=== PATIENT | female | born 1930 | race Asian ===

== ENCOUNTER 2018-10-18 16:59 | Inpatient (IN) | payer MEDICARE, OTHER ==
[~2018-10-18] VITALS: Ht 154.9 cm; Wt 70.0 kg
[~2018-10-18 16:59] MED LIST: AMLO-512 PO; ASPI-26 PO; ATOR40TA28 PO; CARV6 PO; CELE100 PO; CHL25 PO; COMP5 PO; CYAN250014 PO; DSS100 PO; FERR-89 PO; FLUT16H NASAL; FOLI1 PO; GABA-529 PO; HYDR-2924 PO; INSNOV SQ; MONT10TA21 PO; OXYC-158 PO; SITA100 PO; THIA100T67 PO
[2018-10-18 17:24] LABS: GLUCOSE,POINT OF CARE 209 MG/DL (70-110)
[2018-10-18 17:56] LABS: BASOPHILS % (AUTO) 0.3 % (0.0-2.0); EOSINOPHILS % (AUTO) 0.1 % (1.0-6.0); HEMATOCRIT 33.7 % (36-46); HEMOGLOBIN 11.2 g/dL (12.0-16.0); LYMPHOCYTES # (AUTO) 0.9 K/uL (1.0-4.8); LYMPHOCYTES % (AUTO) 7.6 % (22.0-44.0); MEAN CORPUSCULAR HEMOGLOBIN 31.3 pg (26.0-34.0); MEAN CORPUSCULAR HGB CONC 33.3 G/dL (31.0-37.0); MEAN CORPUSCULAR VOLUME 94 fL (80-100); MONOCYTES # (AUTO) 1.9 K/uL (0.1-1.0); MONOCYTES % (AUTO) 15.5 % (2.0-9.0); NEUTROPHILS # (AUTO) 9.5 K/uL (1.8-7.7); NEUTROPHILS % (AUTO) 76.5 % (40.0-70.0); PLATELET COUNT (AUTO) 157 K/uL (150-450); RED BLOOD CELL COUNT(AUTO) 3.59 MIL/uL (4.00-5.20); RED CELL DISTRIBUTION WIDTH 12.3 % (11.5-14.5)
[2018-10-18 18:04] LABS: CREATININE 1.54 mg/dL (0.60-1.30)
[2018-10-18 18:10] LABS: ALBUMIN 2.5 g/dL (3.4-5.0); BILIRUBIN,TOTAL 0.6 mg/dL (0.1-1.0); TOTAL PROTEIN, SERUM 7.4 g/dL (6.4-8.2)
[2018-10-18] MEDS ORDERED: IPRATROPIUM BROMIDE 0.5 MG/2.5 ML NEB SOLUTION NEB ONE (19:00)
[2018-10-18] MEDS ORDERED: ALBUTEROL SULFATE 2.5 MG/0.5 ML NEB SOLUTION NEB ONE (19:00)
[2018-10-18] MEDS ORDERED: SODIUM CHLORIDE 0.9% 1,000 ML IV ONE ×2 (19:45→21:45)
[2018-10-18] MEDS ORDERED: 0.9% SODIUM CHLORIDE 10 ML SYRINGE IVP PRN ×2 (19:45→21:45)
[2018-10-18] MEDS ORDERED: LEVOFLOXACIN 500 MG/D5% WATER 100 ML IV ONE (19:45)
[2018-10-18] MEDS ORDERED: POTASSIUM CHLORIDE 20 MEQ ER TABLET PO ONE (20:30)
[2018-10-18] MEDS ORDERED: ONDANSETRON HCL 4 MG/2 ML VIAL IVP PRN ×2 (20:30→21:45)
[2018-10-18] MEDS ORDERED: ACETAMINOPHEN 325 MG TABLET PO PRN (20:30)
[2018-10-18 21:41] LABS: INFLUENZA TYPE A NEGATIVE FOR TYPE A (NEGATIVE); INFLUENZA TYPE B NEGATIVE FOR TYPE B (NEGATIVE)
[2018-10-18] MEDS ORDERED: ALBUTEROL SULFATE 2.5 MG/0.5 ML NEB SOLUTION NEB PRN (21:45)
[2018-10-18] MEDS ORDERED: GLUCAGON,HUMAN RECOMBINANT 1 MG VIAL IM PRN (21:45)
[2018-10-18] MEDS ORDERED: IPRATROPIUM BROMIDE 0.5 MG/2.5 ML NEB SOLUTION NEB PRN (21:45)
[2018-10-18] MEDS ORDERED: ZOLPIDEM TARTRATE 5 MG TABLET PO PRN (21:45)
[2018-10-18] MEDS ORDERED: INSULIN LISPRO 100 UNITS/ML SQ PRN (21:45)
[2018-10-18] MEDS ORDERED: DEXTROSE 50%-WATER 25 GM/50 ML SYG IVP PRN (22:00)
[2018-10-18 23:25] VITALS: BP 147/74
[2018-10-18] MEDS: HEPARIN SODIUM,PORCINE 5,000 UNITS/ML VIAL SQ SCH (23:49)
[2018-10-18] MEDS ORDERED: SODIUM CHLORIDE 0.9% 250 ML IV ONE (23:50)
[2018-10-19] MEDS: CefTRIAXone 1 GM/DEXTROSE 50 ML IV SCH ×2 (00:51→22:11)
[2018-10-19] MEDS: AZITHROMYCIN 500 MG/NS 250 ML IV SCH ×2 (01:33→23:02)
[2018-10-19] MEDS ORDERED: ALBUTEROL SULFATE 2.5 MG/0.5 ML NEB SOLUTION NEB SCH (02:00)
[2018-10-19] MEDS ORDERED: IPRATROPIUM BROMIDE 0.5 MG/2.5 ML NEB SOLUTION NEB SCH (02:00)
[2018-10-19] MEDS: ALBUTEROL SULFATE 2.5 MG/0.5 ML NEB SOLUTION NEB SCH ×4 (02:13→19:25)
[2018-10-19] MEDS: IPRATROPIUM BROMIDE 0.5 MG/2.5 ML NEB SOLUTION NEB SCH ×4 (02:13→19:25)
[2018-10-19 04:21] VITALS: BP 156/76
[2018-10-19 06:58] LABS: BASOPHILS % (AUTO) 0.2 % (0.0-2.0); EOSINOPHILS % (AUTO) 0 % (1.0-6.0); HEMATOCRIT 33.3 % (36-46); HEMOGLOBIN 11.1 g/dL (12.0-16.0); LYMPHOCYTES # (AUTO) 0.8 K/uL (1.0-4.8); LYMPHOCYTES % (AUTO) 5.7 % (22.0-44.0); MEAN CORPUSCULAR HEMOGLOBIN 31.2 pg (26.0-34.0); MEAN CORPUSCULAR HGB CONC 33.4 G/dL (31.0-37.0); MEAN CORPUSCULAR VOLUME 93 fL (80-100); MONOCYTES % (AUTO) 13.9 % (2.0-9.0); NEUTROPHILS # (AUTO) 11.2 K/uL (1.8-7.7); NEUTROPHILS % (AUTO) 80.2 % (40.0-70.0); PLATELET COUNT (AUTO) 161 K/uL (150-450); RED BLOOD CELL COUNT(AUTO) 3.56 MIL/uL (4.00-5.20); RED CELL DISTRIBUTION WIDTH 12.2 % (11.5-14.5)
[2018-10-19] MEDS: INSULIN LISPRO 100 UNITS/ML SQ PRN ×4 (06:58→22:27)
[2018-10-19 07:16] LABS: ALBUMIN 2.3 g/dL (3.4-5.0); BILIRUBIN,TOTAL 0.4 mg/dL (0.1-1.0); CREATININE 1.25 mg/dL (0.60-1.30); MAGNESIUM 1.7 mg/dL (1.80-2.40); POTASSIUM 3.4 mmol/L (3.5-5.1); TOTAL PROTEIN, SERUM 7.4 g/dL (6.4-8.2)
[2018-10-19 07:39] LABS: GLUCOMETER DEV NAME(LOC) 5S.1; GLUCOSE,POINT OF CARE 187 MG/DL (70-110)
[2018-10-19 08:20] VITALS: BP 158/80
[2018-10-19] MEDS: HEPARIN SODIUM,PORCINE 5,000 UNITS/ML VIAL SQ SCH ×3 (08:38→23:02)
[2018-10-19] MEDS: PANTOPRAZOLE SODIUM 40 MG/VIAL IVP SCH (08:38)
[2018-10-19] MEDS: CHLORTHALIDONE 25 MG TABLET PO SCH (08:40)
[2018-10-19] MEDS: DOCUSATE SODIUM 100 MG CAPSULE PO SCH ×2 (08:40→21:00)
[2018-10-19] MEDS: AmLODIPine BESYLATE 10 MG TABLET PO SCH (08:40)
[2018-10-19] MEDS: HydrALAZINE HCL 50 MG TABLET PO SCH ×2 (08:40→22:11)
[2018-10-19] MEDS: ACETAMINOPHEN 325 MG TABLET PO PRN ×2 (08:40→16:17)
[2018-10-19] MEDS: CARVEDILOL 6.25 MG TABLET PO SCH (08:40)
[2018-10-19] MEDS: SitaGLIPtin PHOSPHATE 100 MG TABLET PO SCH (08:40)
[2018-10-19] MEDS: ATORVASTATIN CALCIUM 40 MG TABLET PO SCH (08:44)
[2018-10-19] MEDS ORDERED: MAGNESIUM SULFATE 2 GM/WATER 50 ML IV PRN (11:30)
[2018-10-19] MEDS ORDERED: MAGNESIUM SULFATE 4 GM/WATER 100 ML IV PRN (11:30)
[2018-10-19] MEDS ORDERED: POTASSIUM CHLORIDE 20 MEQ ER TABLET PO PRN (11:30)
[2018-10-19] MEDS ORDERED: POTASSIUM CHL 10 MEQ/WATER 50 ML IV PRN (11:30)
[2018-10-19] MEDS ORDERED: CYAN500 PO (11:37)
[2018-10-19] MEDS: MAGNESIUM OXIDE 400 MG TABLET PO PRN ×3 (11:51→22:11)
[2018-10-19 11:52] VITALS: BP 117/55
[2018-10-19 13:14] LABS: GLUCOMETER DEV NAME(LOC) 5S.1; GLUCOSE,POINT OF CARE 207 MG/DL (70-110)
[2018-10-19 15:40] VITALS: BP 141/62
[2018-10-19] MEDS: PROMETHAZINE HCL/CODEINE 6.25-10MG/5ML SYRUP UDCUP PO PRN (18:06)
[2018-10-19 20:04] VITALS: BP 105/56
[2018-10-19] MEDS: MONTELUKAST SODIUM 10 MG TABLET PO SCH (22:11)
[2018-10-19] MEDS ORDERED: SODIUM CHLORIDE 0.9% 250 ML IV ONE (22:16)
[2018-10-19 23:53] LABS: GLUCOMETER DEV NAME(LOC) 5S.1; GLUCOSE,POINT OF CARE 150 MG/DL (70-110)
[2018-10-19 23:54] LABS: GLUCOMETER DEV NAME(LOC) 5N.1; GLUCOSE,POINT OF CARE 222 MG/DL (70-110)
[2018-10-19 23:57] VITALS: BP 124/61
[2018-10-20] MEDS: ALBUTEROL SULFATE 2.5 MG/0.5 ML NEB SOLUTION NEB SCH ×4 (01:57→20:36)
[2018-10-20] MEDS: IPRATROPIUM BROMIDE 0.5 MG/2.5 ML NEB SOLUTION NEB SCH ×4 (01:58→20:36)
[2018-10-20 05:00] VITALS: BP 133/65
[2018-10-20 06:00] LABS: BASOPHILS % (AUTO) 0.1 % (0.0-2.0); EOSINOPHILS % (AUTO) 0.2 % (1.0-6.0); HEMATOCRIT 30.7 % (36-46); LYMPHOCYTES # (AUTO) 1.3 K/uL (1.0-4.8); LYMPHOCYTES % (AUTO) 6.2 % (22.0-44.0); MEAN CORPUSCULAR HEMOGLOBIN 30.7 pg (26.0-34.0); MEAN CORPUSCULAR HGB CONC 32.8 G/dL (31.0-37.0); MEAN CORPUSCULAR VOLUME 94 fL (80-100); MONOCYTES # (AUTO) 2.4 K/uL (0.1-1.0); MONOCYTES % (AUTO) 11.6 % (2.0-9.0); NEUTROPHILS # (AUTO) 16.7 K/uL (1.8-7.7); NEUTROPHILS % (AUTO) 81.9 % (40.0-70.0); PLATELET COUNT (AUTO) 164 K/uL (150-450); RED BLOOD CELL COUNT(AUTO) 3.27 MIL/uL (4.00-5.20); RED CELL DISTRIBUTION WIDTH 12.4 % (11.5-14.5)
[2018-10-20] MEDS: PROMETHAZINE HCL/CODEINE 6.25-10MG/5ML SYRUP UDCUP PO PRN ×3 (06:12→20:05)
[2018-10-20] MEDS: INSULIN LISPRO 100 UNITS/ML SQ PRN ×3 (06:15→21:41)
[2018-10-20 06:34] LABS: GLUCOMETER DEV NAME(LOC) 5N.1; GLUCOSE,POINT OF CARE 160 MG/DL (70-110)
[2018-10-20 06:40] LABS: CALCIUM, TOTAL 8.9 mg/dL (8.8-10.5); CREATININE 1.25 mg/dL (0.60-1.30); MAGNESIUM 1.6 mg/dL (1.80-2.40); POTASSIUM 3.7 mmol/L (3.5-5.1)
[2018-10-20 07:43] VITALS: BP 123/87
[2018-10-20] MEDS: AmLODIPine BESYLATE 10 MG TABLET PO SCH (09:00)
[2018-10-20] MEDS: HydrALAZINE HCL 50 MG TABLET PO SCH ×2 (09:00→20:04)
[2018-10-20] MEDS: PANTOPRAZOLE SODIUM 40 MG/VIAL IVP SCH (09:27)
[2018-10-20] MEDS: HEPARIN SODIUM,PORCINE 5,000 UNITS/ML VIAL SQ SCH ×2 (09:29→16:12)
[2018-10-20] MEDS: DOCUSATE SODIUM 100 MG CAPSULE PO SCH ×2 (09:29→20:04)
[2018-10-20] MEDS: POTASSIUM CHLORIDE 20 MEQ ER TABLET PO PRN (09:30)
[2018-10-20] MEDS: ATORVASTATIN CALCIUM 40 MG TABLET PO SCH (09:30)
[2018-10-20] MEDS: SitaGLIPtin PHOSPHATE 100 MG TABLET PO SCH (09:30)
[2018-10-20] MEDS: MAGNESIUM OXIDE 400 MG TABLET PO PRN ×3 (09:30→20:12)
[2018-10-20] MEDS: CHLORTHALIDONE 25 MG TABLET PO SCH (09:31)
[2018-10-20] MEDS: CARVEDILOL 6.25 MG TABLET PO SCH (09:34)
[2018-10-20 11:42] VITALS: BP 125/85
[2018-10-20 15:34] LABS: GLUCOMETER DEV NAME(LOC) 5S.1; GLUCOSE,POINT OF CARE 176 MG/DL (70-110)
[2018-10-20 15:54] VITALS: BP 121/56
[2018-10-20] MEDS ORDERED: SODIUM CHLORIDE 0.9% 100 ML ONE (19:52)
[2018-10-20] MEDS: MONTELUKAST SODIUM 10 MG TABLET PO SCH (20:04)
[2018-10-20 20:07] VITALS: BP 145/73
[2018-10-20] MEDS: ACETAMINOPHEN 325 MG TABLET PO PRN (20:07)
[2018-10-20] MEDS: CefTRIAXone 1 GM/DEXTROSE 50 ML IV SCH (21:42)
[2018-10-20] MEDS: AZITHROMYCIN 500 MG/NS 250 ML IV SCH (22:49)
[2018-10-21] VITALS (7 sets, daily range): BP systolic 107–140; BP diastolic 53–67
[2018-10-21] MEDS: HEPARIN SODIUM,PORCINE 5,000 UNITS/ML VIAL SQ SCH ×4 (00:33→23:35)
[2018-10-21] MEDS: IPRATROPIUM BROMIDE 0.5 MG/2.5 ML NEB SOLUTION NEB SCH ×4 (02:27→19:55)
[2018-10-21] MEDS: ALBUTEROL SULFATE 2.5 MG/0.5 ML NEB SOLUTION NEB SCH ×4 (02:27→19:55)
[2018-10-21] MEDS: PROMETHAZINE HCL/CODEINE 6.25-10MG/5ML SYRUP UDCUP PO PRN (03:16)
[2018-10-21 05:10] LABS: GLUCOMETER DEV NAME(LOC) 5N.1; GLUCOSE,POINT OF CARE 217 MG/DL (70-110)
[2018-10-21 05:10] LABS: GLUCOMETER DEV NAME(LOC) 5N.1; GLUCOSE,POINT OF CARE 128 MG/DL (70-110)
[2018-10-21 06:30] LABS: GLUCOMETER DEV NAME(LOC) 5S.1; GLUCOSE,POINT OF CARE 109 MG/DL (70-110)
[2018-10-21] MEDS: ATORVASTATIN CALCIUM 40 MG TABLET PO SCH (08:15)
[2018-10-21] MEDS: CARVEDILOL 6.25 MG TABLET PO SCH (08:15)
[2018-10-21] MEDS: AmLODIPine BESYLATE 10 MG TABLET PO SCH (08:15)
[2018-10-21] MEDS: CHLORTHALIDONE 25 MG TABLET PO SCH (08:16)
[2018-10-21] MEDS: HydrALAZINE HCL 50 MG TABLET PO SCH (08:16)
[2018-10-21] MEDS: SitaGLIPtin PHOSPHATE 100 MG TABLET PO SCH (08:16)
[2018-10-21] MEDS: PANTOPRAZOLE SODIUM 40 MG/VIAL IVP SCH (08:17)
[2018-10-21] MEDS: DOCUSATE SODIUM 100 MG CAPSULE PO SCH ×2 (08:17→20:48)
[2018-10-21] MEDS: INSULIN LISPRO 100 UNITS/ML SQ PRN ×3 (12:06→20:52)
[2018-10-21 13:24] LABS: GLUCOMETER DEV NAME(LOC) 5N.1; GLUCOSE,POINT OF CARE 225 MG/DL (70-110)
[2018-10-21 19:36] LABS: CALCIUM, TOTAL 9.1 mg/dL (8.8-10.5); CREATININE 1.43 mg/dL (0.60-1.30); POTASSIUM 4.3 mmol/L (3.5-5.1)
[2018-10-21] MEDS: CARVEDILOL 12.5 MG TABLET PO SCH (20:48)
[2018-10-21] MEDS ORDERED: SODIUM CHLORIDE 0.9% 100 ML ONE (22:21)
[2018-10-21] MEDS: MONTELUKAST SODIUM 10 MG TABLET PO SCH (22:26)
[2018-10-21 22:38] LABS: SODIUM,URINE RANDOM 30 mmol/l (20-110)
[2018-10-21] MEDS: HydrALAZINE HCL 10 MG TABLET PO SCH (22:38)
[2018-10-21] MEDS: CefTRIAXone 1 GM/DEXTROSE 50 ML IV SCH (22:38)
[2018-10-21 22:40] LABS: OSMOLALITY,URINE 204 mOS/kg (50-1200)
[2018-10-21] MEDS: AZITHROMYCIN 500 MG/NS 250 ML IV SCH (23:36)
[2018-10-22 00:10] VITALS: BP 134/68
[2018-10-22 00:41] LABS: GLUCOMETER DEV NAME(LOC) 5N.1; GLUCOSE,POINT OF CARE 236 MG/DL (70-110)
[2018-10-22] MEDS: IPRATROPIUM BROMIDE 0.5 MG/2.5 ML NEB SOLUTION NEB SCH ×4 (01:38→20:33)
[2018-10-22] MEDS: ALBUTEROL SULFATE 2.5 MG/0.5 ML NEB SOLUTION NEB SCH ×4 (01:38→20:33)
[2018-10-22 05:01] VITALS: BP 140/61
[2018-10-22 05:54] LABS: GLUCOMETER DEV NAME(LOC) 5S.1; GLUCOSE,POINT OF CARE 143 MG/DL (70-110)
[2018-10-22 06:37] LABS: CALCIUM, TOTAL 8.9 mg/dL (8.8-10.5); CHOL/HDL RATIO 2.2 (3.9-5.7); CREATININE 1.37 mg/dL (0.60-1.30); PHOSPHORUS 4.1 mg/dL (2.5-4.9); POTASSIUM 3.8 mmol/L (3.5-5.1); THYROID STIMULATING HORMONE 0.23 uIU/mL (0.36-3.74)
[2018-10-22 06:59] LABS: % IRON SATURATION 19.1 % (22-44)
[2018-10-22 07:20] LABS: GLUCOMETER DEV NAME(LOC) 5N.1; GLUCOSE,POINT OF CARE 122 MG/DL (70-110)
[2018-10-22] MEDS: HEPARIN SODIUM,PORCINE 5,000 UNITS/ML VIAL SQ SCH ×3 (08:00→23:19)
[2018-10-22 08:19] VITALS: BP 124/58
[2018-10-22] MEDS: HydrALAZINE HCL 10 MG TABLET PO SCH ×2 (09:00→21:12)
[2018-10-22] MEDS: ATORVASTATIN CALCIUM 40 MG TABLET PO SCH (09:36)
[2018-10-22] MEDS: AmLODIPine BESYLATE 5 MG TABLET PO SCH (09:36)
[2018-10-22] MEDS: DOCUSATE SODIUM 100 MG CAPSULE PO SCH ×2 (09:36→21:12)
[2018-10-22] MEDS: SitaGLIPtin PHOSPHATE 50 MG TABLET PO SCH (09:37)
[2018-10-22] MEDS: SODIUM CHLORIDE 1 GM TABLET PO SCH ×4 (09:37→23:19)
[2018-10-22] MEDS: PANTOPRAZOLE SODIUM 40 MG/VIAL IVP SCH (09:37)
[2018-10-22] MEDS: CARVEDILOL 12.5 MG TABLET PO SCH ×2 (09:37→21:12)
[2018-10-22 10:05] LABS: C-REACTIVE PROTEIN QUANT 24.76 mg/dL (0.00-0.30)
[2018-10-22 12:01] VITALS: BP 108/59
[2018-10-22] MEDS: INSULIN LISPRO 100 UNITS/ML SQ PRN ×3 (12:35→21:24)
[2018-10-22 16:15] VITALS: BP 107/63
[2018-10-22 17:20] LABS: GLUCOMETER DEV NAME(LOC) 5S.1; GLUCOSE,POINT OF CARE 191 MG/DL (70-110)
[2018-10-22 19:35] VITALS: BP 141/72
[2018-10-22] MEDS: MONTELUKAST SODIUM 10 MG TABLET PO SCH (21:12)
[2018-10-22] MEDS: CefTRIAXone 1 GM/DEXTROSE 50 ML IV SCH (21:15)
[2018-10-22] MEDS: PROMETHAZINE HCL/CODEINE 6.25-10MG/5ML SYRUP UDCUP PO PRN (23:19)
[2018-10-22] MEDS: AZITHROMYCIN 500 MG/NS 250 ML IV SCH (23:20)
[2018-10-23 00:03] VITALS: BP 130/68
[2018-10-23] MEDS: ALBUTEROL SULFATE 2.5 MG/0.5 ML NEB SOLUTION NEB SCH ×4 (02:30→20:36)
[2018-10-23] MEDS: IPRATROPIUM BROMIDE 0.5 MG/2.5 ML NEB SOLUTION NEB SCH ×4 (02:30→20:36)
[2018-10-23 04:03] VITALS: BP 137/73
[2018-10-23 04:14] LABS: GLUCOMETER DEV NAME(LOC) 5N.2; GLUCOSE,POINT OF CARE 150 MG/DL (70-110)
[2018-10-23 04:14] LABS: GLUCOMETER DEV NAME(LOC) 5N.2; GLUCOSE,POINT OF CARE 164 MG/DL (70-110)
[2018-10-23] MEDS: SODIUM CHLORIDE 1 GM TABLET PO SCH ×4 (05:49→23:08)
[2018-10-23] MEDS: INSULIN LISPRO 100 UNITS/ML SQ PRN ×4 (05:57→20:13)
[2018-10-23 07:07] LABS: CREATININE 1.16 mg/dL (0.60-1.30); FREE T4 (FREE THYROXINE) 1.41 ng/dL (0.76-1.46); PHOSPHORUS 3.9 mg/dL (2.5-4.9); POTASSIUM 3.5 mmol/L (3.5-5.1)
[2018-10-23 07:49] VITALS: BP 143/67
[2018-10-23] MEDS: HEPARIN SODIUM,PORCINE 5,000 UNITS/ML VIAL SQ SCH ×3 (09:06→23:08)
[2018-10-23] MEDS: CARVEDILOL 12.5 MG TABLET PO SCH ×2 (09:07→19:51)
[2018-10-23] MEDS: DOCUSATE SODIUM 100 MG CAPSULE PO SCH ×2 (09:07→19:51)
[2018-10-23] MEDS: PANTOPRAZOLE SODIUM 40 MG/VIAL IVP SCH (09:07)
[2018-10-23] MEDS: HydrALAZINE HCL 10 MG TABLET PO SCH ×2 (09:07→21:55)
[2018-10-23] MEDS: ATORVASTATIN CALCIUM 40 MG TABLET PO SCH (09:08)
[2018-10-23] MEDS: SitaGLIPtin PHOSPHATE 50 MG TABLET PO SCH (09:08)
[2018-10-23] MEDS: AmLODIPine BESYLATE 5 MG TABLET PO SCH (09:08)
[2018-10-23 12:06] VITALS: BP 134/65
[2018-10-23] MEDS: PROMETHAZINE HCL/CODEINE 6.25-10MG/5ML SYRUP UDCUP PO PRN (15:12)
[2018-10-23 15:23] VITALS: BP 156/75
[2018-10-23] MEDS: MONTELUKAST SODIUM 10 MG TABLET PO SCH (19:51)
[2018-10-23 20:02] VITALS: BP 153/74
[2018-10-23 20:44] LABS: GLUCOMETER DEV NAME(LOC) 5N.2; GLUCOSE,POINT OF CARE 145 MG/DL (70-110)
[2018-10-23 20:44] LABS: GLUCOMETER DEV NAME(LOC) 5N.2; GLUCOSE,POINT OF CARE 192 MG/DL (70-110)
[2018-10-23 20:44] LABS: GLUCOMETER DEV NAME(LOC) 5N.2; GLUCOSE,POINT OF CARE 153 MG/DL (70-110)
[2018-10-23 20:44] LABS: GLUCOMETER DEV NAME(LOC) 5N.2; GLUCOSE,POINT OF CARE 155 MG/DL (70-110)
[2018-10-23] MEDS: CefTRIAXone 1 GM/DEXTROSE 50 ML IV SCH (22:08)
[2018-10-23] MEDS: AZITHROMYCIN 500 MG/NS 250 ML IV SCH (23:08)
[2018-10-24 00:04] VITALS: BP 136/64
[2018-10-24] MEDS: IPRATROPIUM BROMIDE 0.5 MG/2.5 ML NEB SOLUTION NEB SCH ×3 (02:09→20:14)
[2018-10-24] MEDS: ALBUTEROL SULFATE 2.5 MG/0.5 ML NEB SOLUTION NEB SCH ×3 (02:09→20:15)
[2018-10-24 04:29] VITALS: BP 137/68
[2018-10-24 05:54] LABS: GLUCOMETER DEV NAME(LOC) 5N.2; GLUCOSE,POINT OF CARE 110 MG/DL (70-110)
[2018-10-24 06:57] LABS: CALCIUM, TOTAL 8.8 mg/dL (8.8-10.5); CREATININE 1.13 mg/dL (0.60-1.30); MAGNESIUM 1.8 mg/dL (1.80-2.40); PHOSPHORUS 3.9 mg/dL (2.5-4.9); POTASSIUM 3.5 mmol/L (3.5-5.1)
[2018-10-24 08:16] VITALS: BP 143/72
[2018-10-24] MEDS: AmLODIPine BESYLATE 5 MG TABLET PO SCH (08:44)
[2018-10-24] MEDS: ATORVASTATIN CALCIUM 40 MG TABLET PO SCH (08:44)
[2018-10-24] MEDS: CARVEDILOL 12.5 MG TABLET PO SCH ×3 (08:44→23:34)
[2018-10-24] MEDS: SitaGLIPtin PHOSPHATE 50 MG TABLET PO SCH (08:44)
[2018-10-24] MEDS: DOCUSATE SODIUM 100 MG CAPSULE PO SCH ×2 (08:44→21:47)
[2018-10-24] MEDS: PANTOPRAZOLE SODIUM 40 MG/VIAL IVP SCH (08:45)
[2018-10-24] MEDS: HEPARIN SODIUM,PORCINE 5,000 UNITS/ML VIAL SQ SCH ×2 (08:45→21:48)
[2018-10-24] MEDS: HydrALAZINE HCL 10 MG TABLET PO SCH ×2 (08:46→21:48)
[2018-10-24] MEDS: INSULIN LISPRO 100 UNITS/ML SQ PRN ×3 (11:41→21:55)
[2018-10-24 11:58] VITALS: BP 148/74
[2018-10-24 11:59] LABS: GLUCOMETER DEV NAME(LOC) 5N.2; GLUCOSE,POINT OF CARE 176 MG/DL (70-110)
[2018-10-24 17:09] VITALS: BP 124/75
[2018-10-24] MEDS: BENZONATATE 100 MG CAPSULE PO SCH ×2 (18:40→23:34)
[2018-10-24 19:39] VITALS: BP 147/70
[2018-10-24 19:39] LABS: GLUCOMETER DEV NAME(LOC) 5N.2; GLUCOSE,POINT OF CARE 146 MG/DL (70-110)
[2018-10-24] MEDS: MONTELUKAST SODIUM 10 MG TABLET PO SCH (21:48)
[2018-10-24] MEDS: CefTRIAXone 1 GM/DEXTROSE 50 ML IV SCH (21:48)
[2018-10-24 22:04] LABS: GLUCOMETER DEV NAME(LOC) 5S.2; GLUCOSE,POINT OF CARE 164 MG/DL (70-110)
[2018-10-24] MEDS: AZITHROMYCIN 500 MG/NS 250 ML IV SCH (23:34)
[2018-10-25] VITALS (7 sets, daily range): BP systolic 116–140; BP diastolic 58–72
[2018-10-25] MEDS: IPRATROPIUM BROMIDE 0.5 MG/2.5 ML NEB SOLUTION NEB SCH ×4 (02:16→19:39)
[2018-10-25] MEDS: ALBUTEROL SULFATE 2.5 MG/0.5 ML NEB SOLUTION NEB SCH ×4 (02:17→19:39)
[2018-10-25 05:43] LABS: CALCIUM, TOTAL 8.7 mg/dL (8.8-10.5); CREATININE 1.04 mg/dL (0.60-1.30); PHOSPHORUS 4.2 mg/dL (2.5-4.9); POTASSIUM 3.6 mmol/L (3.5-5.1)
[2018-10-25] MEDS: PANTOPRAZOLE SODIUM 40 MG DR TABLET PO SCH (06:56)
[2018-10-25 06:59] LABS: GLUCOMETER DEV NAME(LOC) 5S.1; GLUCOSE,POINT OF CARE 107 MG/DL (70-110)
[2018-10-25] MEDS: AmLODIPine BESYLATE 5 MG TABLET PO SCH (09:25)
[2018-10-25] MEDS: HEPARIN SODIUM,PORCINE 5,000 UNITS/ML VIAL SQ SCH ×2 (09:25→20:19)
[2018-10-25] MEDS: HydrALAZINE HCL 10 MG TABLET PO SCH ×2 (09:26→20:18)
[2018-10-25] MEDS: SitaGLIPtin PHOSPHATE 50 MG TABLET PO SCH (09:26)
[2018-10-25] MEDS: BENZONATATE 100 MG CAPSULE PO SCH ×3 (09:26→23:50)
[2018-10-25] MEDS: DOCUSATE SODIUM 100 MG CAPSULE PO SCH ×2 (09:26→20:17)
[2018-10-25] MEDS: CARVEDILOL 12.5 MG TABLET PO SCH ×3 (09:26→23:41)
[2018-10-25] MEDS: ATORVASTATIN CALCIUM 40 MG TABLET PO SCH (09:27)
[2018-10-25] MEDS: POTASSIUM CHLORIDE 20 MEQ ER TABLET PO PRN (09:32)
[2018-10-25 11:07] LABS: LEGIONELLA PNEUMO AG URINE Negative (Negative); ORGANISM ID Not indicated.; S PNEUMO SOURCE Urine; STREP PNEUMONIAE AG URINE Negative (Negative); STREP.PNEUMO BODY FLUID CULT. Not Indicated
[2018-10-25] MEDS: INSULIN LISPRO 100 UNITS/ML SQ PRN ×2 (12:47→20:18)
[2018-10-25 18:19] LABS: GLUCOMETER DEV NAME(LOC) 5N.1; GLUCOSE,POINT OF CARE 135 MG/DL (70-110)
[2018-10-25 18:19] LABS: GLUCOMETER DEV NAME(LOC) 5N.1; GLUCOSE,POINT OF CARE 141 MG/DL (70-110)
[2018-10-25] MEDS: ACETAMINOPHEN 325 MG TABLET PO PRN (20:17)
[2018-10-25] MEDS: MONTELUKAST SODIUM 10 MG TABLET PO SCH (20:18)
[2018-10-25] MEDS: BUDESONIDE 0.5 MG/2 ML NEB SOLUTION NEB SCH (22:26)
[2018-10-25] MEDS: CefTRIAXone 1 GM/DEXTROSE 50 ML IV SCH (22:37)
[2018-10-25] MEDS: AZITHROMYCIN 500 MG/NS 250 ML IV SCH (23:39)
[2018-10-26 02:14] LABS: GLUCOMETER DEV NAME(LOC) 5N.1; GLUCOSE,POINT OF CARE 162 MG/DL (70-110)
[2018-10-26] MEDS: ALBUTEROL SULFATE 2.5 MG/0.5 ML NEB SOLUTION NEB SCH ×4 (02:21→19:41)
[2018-10-26] MEDS: IPRATROPIUM BROMIDE 0.5 MG/2.5 ML NEB SOLUTION NEB SCH ×4 (02:21→19:41)
[2018-10-26 04:23] VITALS: BP 132/75
[2018-10-26 06:02] LABS: BASOPHILS % (AUTO) 0.6 % (0.0-2.0); EOSINOPHILS % (AUTO) 3.5 % (1.0-6.0); HEMATOCRIT 26.1 % (36-46); HEMOGLOBIN 8.8 g/dL (12.0-16.0); LYMPHOCYTES # (AUTO) 1.3 K/uL (1.0-4.8); LYMPHOCYTES % (AUTO) 14.3 % (22.0-44.0); MEAN CORPUSCULAR HEMOGLOBIN 31.7 pg (26.0-34.0); MEAN CORPUSCULAR HGB CONC 33.7 G/dL (31.0-37.0); MEAN CORPUSCULAR VOLUME 94 fL (80-100); MONOCYTES % (AUTO) 11.3 % (2.0-9.0); NEUTROPHILS # (AUTO) 6.3 K/uL (1.8-7.7); NEUTROPHILS % (AUTO) 70.3 % (40.0-70.0); PLATELET COUNT (AUTO) 192 K/uL (150-450); RED BLOOD CELL COUNT(AUTO) 2.77 MIL/uL (4.00-5.20); RED CELL DISTRIBUTION WIDTH 12.1 % (11.5-14.5)
[2018-10-26] MEDS: PANTOPRAZOLE SODIUM 40 MG DR TABLET PO SCH (06:08)
[2018-10-26 06:10] LABS: ALBUMIN 1.7 g/dL (3.4-5.0); CALCIUM, TOTAL 9.2 mg/dL (8.8-10.5); CREATININE 0.99 mg/dL (0.60-1.30); MAGNESIUM 1.9 mg/dL (1.80-2.40); PHOSPHORUS 4.6 mg/dL (2.5-4.9); POTASSIUM 4.4 mmol/L (3.5-5.1)
[2018-10-26] MEDS: PROMETHAZINE HCL/CODEINE 6.25-10MG/5ML SYRUP UDCUP PO PRN (07:40)
[2018-10-26 07:44] VITALS: BP 143/73
[2018-10-26] MEDS: BUDESONIDE 0.5 MG/2 ML NEB SOLUTION NEB SCH ×2 (07:49→19:41)
[2018-10-26] MEDS: HEPARIN SODIUM,PORCINE 5,000 UNITS/ML VIAL SQ SCH ×2 (08:34→20:20)
[2018-10-26] MEDS: HydrALAZINE HCL 10 MG TABLET PO SCH ×2 (08:34→20:20)
[2018-10-26] MEDS: CARVEDILOL 12.5 MG TABLET PO SCH ×3 (08:35→23:09)
[2018-10-26] MEDS: SitaGLIPtin PHOSPHATE 50 MG TABLET PO SCH (08:35)
[2018-10-26] MEDS: DOCUSATE SODIUM 100 MG CAPSULE PO SCH ×2 (08:35→20:20)
[2018-10-26] MEDS: BENZONATATE 100 MG CAPSULE PO SCH ×3 (08:36→23:09)
[2018-10-26] MEDS: ATORVASTATIN CALCIUM 40 MG TABLET PO SCH (08:36)
[2018-10-26] MEDS: AmLODIPine BESYLATE 5 MG TABLET PO SCH (08:36)
[2018-10-26 11:51] VITALS: BP 140/70
[2018-10-26] MEDS: INSULIN LISPRO 100 UNITS/ML SQ PRN ×3 (11:58→20:41)
[2018-10-26] MEDS ORDERED: FUROSEMIDE 20 MG/2 ML VIAL IVP ONE (14:00)
[2018-10-26 15:36] VITALS: BP 135/65
[2018-10-26 16:55] LABS: GLUCOMETER DEV NAME(LOC) 5S.2; GLUCOSE,POINT OF CARE 106 MG/DL (70-110)
[2018-10-26 16:55] LABS: GLUCOMETER DEV NAME(LOC) 5S.1; GLUCOSE,POINT OF CARE 150 MG/DL (70-110)
[2018-10-26] MEDS: MONTELUKAST SODIUM 10 MG TABLET PO SCH (20:20)
[2018-10-26 20:21] VITALS: BP 147/77
[2018-10-26 20:33] LABS: GLUCOMETER DEV NAME(LOC) 5S.1; GLUCOSE,POINT OF CARE 145 MG/DL (70-110)
[2018-10-26] MEDS: CefTRIAXone 1 GM/DEXTROSE 50 ML IV SCH (21:02)
[2018-10-26] MEDS: AZITHROMYCIN 500 MG/NS 250 ML IV SCH (23:09)
[2018-10-26 23:45] LABS: GLUCOMETER DEV NAME(LOC) 5N.1; GLUCOSE,POINT OF CARE 153 MG/DL (70-110)
[2018-10-27 00:54] VITALS: BP 132/69
[2018-10-27] MEDS: IPRATROPIUM BROMIDE 0.5 MG/2.5 ML NEB SOLUTION NEB SCH ×4 (02:41→20:02)
[2018-10-27] MEDS: ALBUTEROL SULFATE 2.5 MG/0.5 ML NEB SOLUTION NEB SCH ×4 (02:41→20:02)
[2018-10-27 04:01] VITALS: BP 155/65
[2018-10-27] MEDS: PANTOPRAZOLE SODIUM 40 MG DR TABLET PO SCH (05:42)
[2018-10-27 05:48] LABS: BASOPHILS % (AUTO) 0.9 % (0.0-2.0); EOSINOPHILS % (AUTO) 2.9 % (1.0-6.0); HEMOGLOBIN 8.9 g/dL (12.0-16.0); LYMPHOCYTES # (AUTO) 1.4 K/uL (1.0-4.8); LYMPHOCYTES % (AUTO) 15.7 % (22.0-44.0); MEAN CORPUSCULAR HEMOGLOBIN 31.2 pg (26.0-34.0); MEAN CORPUSCULAR VOLUME 95 fL (80-100); MONOCYTES # (AUTO) 1.2 K/uL (0.1-1.0); MONOCYTES % (AUTO) 13.1 % (2.0-9.0); NEUTROPHILS # (AUTO) 5.9 K/uL (1.8-7.7); NEUTROPHILS % (AUTO) 67.4 % (40.0-70.0); PLATELET COUNT (AUTO) 214 K/uL (150-450); RED BLOOD CELL COUNT(AUTO) 2.86 MIL/uL (4.00-5.20); RED CELL DISTRIBUTION WIDTH 12.7 % (11.5-14.5)
[2018-10-27 06:35] LABS: GLUCOMETER DEV NAME(LOC) 5N.1; GLUCOSE,POINT OF CARE 90 MG/DL (70-110)
[2018-10-27 07:42] LABS: CALCIUM, TOTAL 8.7 mg/dL (8.8-10.5); CREATININE 1.1 mg/dL (0.60-1.30); MAGNESIUM 1.8 mg/dL (1.80-2.40); PHOSPHORUS 4.6 mg/dL (2.5-4.9); POTASSIUM 3.6 mmol/L (3.5-5.1)
[2018-10-27 08:02] VITALS: BP 144/93
[2018-10-27] MEDS ORDERED: 0.9% SODIUM CHLORIDE 5 ML NEB SOLUTION NEB ONE (08:21)
[2018-10-27] MEDS: BUDESONIDE 0.5 MG/2 ML NEB SOLUTION NEB SCH ×2 (08:32→20:03)
[2018-10-27] MEDS: ATORVASTATIN CALCIUM 40 MG TABLET PO SCH (08:53)
[2018-10-27] MEDS: SitaGLIPtin PHOSPHATE 50 MG TABLET PO SCH (08:53)
[2018-10-27] MEDS: HydrALAZINE HCL 10 MG TABLET PO SCH ×2 (08:53→20:36)
[2018-10-27] MEDS: BENZONATATE 100 MG CAPSULE PO SCH ×3 (08:53→23:05)
[2018-10-27] MEDS: AmLODIPine BESYLATE 5 MG TABLET PO SCH (08:54)
[2018-10-27] MEDS: DOCUSATE SODIUM 100 MG CAPSULE PO SCH ×2 (08:54→20:36)
[2018-10-27] MEDS: HEPARIN SODIUM,PORCINE 5,000 UNITS/ML VIAL SQ SCH ×2 (08:54→20:36)
[2018-10-27 09:20] LABS: C-REACTIVE PROTEIN QUANT 6.32 mg/dL (0.00-0.30)
[2018-10-27 10:36] LABS: ERYTHROCYTE SEDIMENTATION RATE > 140 MM/HR (0-20)
[2018-10-27 11:23] VITALS: BP 116/61
[2018-10-27 13:44] LABS: GLUCOMETER DEV NAME(LOC) 5S.2; GLUCOSE,POINT OF CARE 111 MG/DL (70-110)
[2018-10-27 15:25] VITALS: BP 113/64
[2018-10-27] MEDS: CARVEDILOL 25 MG TABLET PO SCH (15:58)
[2018-10-27] MEDS: MONTELUKAST SODIUM 10 MG TABLET PO SCH (20:36)
[2018-10-27] MEDS: INSULIN LISPRO 100 UNITS/ML SQ PRN (20:38)
[2018-10-27 20:52] VITALS: BP 118/55
[2018-10-27] MEDS: CefTRIAXone 1 GM/DEXTROSE 50 ML IV SCH (22:00)
[2018-10-27] MEDS: AZITHROMYCIN 500 MG/NS 250 ML IV SCH (23:02)
[2018-10-28 00:26] VITALS: BP 122/61
[2018-10-28] MEDS: ALBUTEROL SULFATE 2.5 MG/0.5 ML NEB SOLUTION NEB SCH ×3 (02:24→15:05)
[2018-10-28] MEDS: IPRATROPIUM BROMIDE 0.5 MG/2.5 ML NEB SOLUTION NEB SCH ×3 (02:24→15:04)
[2018-10-28] MEDS: CARVEDILOL 25 MG TABLET PO SCH ×2 (04:31→16:01)
[2018-10-28 05:04] VITALS: BP 136/73
[2018-10-28 05:53] LABS: BASOPHILS % (AUTO) 0.8 % (0.0-2.0); EOSINOPHILS % (AUTO) 2.5 % (1.0-6.0); HEMATOCRIT 28.7 % (36-46); HEMOGLOBIN 9.4 g/dL (12.0-16.0); LYMPHOCYTES # (AUTO) 1.4 K/uL (1.0-4.8); LYMPHOCYTES % (AUTO) 15.3 % (22.0-44.0); MEAN CORPUSCULAR HEMOGLOBIN 31.2 pg (26.0-34.0); MEAN CORPUSCULAR HGB CONC 32.7 G/dL (31.0-37.0); MEAN CORPUSCULAR VOLUME 95 fL (80-100); MONOCYTES % (AUTO) 11.1 % (2.0-9.0); NEUTROPHILS # (AUTO) 6.4 K/uL (1.8-7.7); NEUTROPHILS % (AUTO) 70.3 % (40.0-70.0); PLATELET COUNT (AUTO) 248 K/uL (150-450); RED BLOOD CELL COUNT(AUTO) 3.02 MIL/uL (4.00-5.20); RED CELL DISTRIBUTION WIDTH 12.7 % (11.5-14.5)
[2018-10-28] MEDS: PANTOPRAZOLE SODIUM 40 MG DR TABLET PO SCH (06:01)
[2018-10-28 06:12] LABS: CALCIUM, TOTAL 9.2 mg/dL (8.8-10.5); CREATININE 1.19 mg/dL (0.60-1.30); POTASSIUM 3.9 mmol/L (3.5-5.1)
[2018-10-28 07:44] VITALS: BP 127/66
[2018-10-28] MEDS: HydrALAZINE HCL 10 MG TABLET PO SCH (08:06)
[2018-10-28] MEDS: SitaGLIPtin PHOSPHATE 50 MG TABLET PO SCH (08:06)
[2018-10-28] MEDS: AmLODIPine BESYLATE 5 MG TABLET PO SCH (08:06)
[2018-10-28] MEDS: BENZONATATE 100 MG CAPSULE PO SCH ×2 (08:06→16:01)
[2018-10-28] MEDS: ATORVASTATIN CALCIUM 40 MG TABLET PO SCH (08:06)
[2018-10-28] MEDS: DOCUSATE SODIUM 100 MG CAPSULE PO SCH (08:06)
[2018-10-28] MEDS: HEPARIN SODIUM,PORCINE 5,000 UNITS/ML VIAL SQ SCH (08:06)
[2018-10-28] MEDS: BUDESONIDE 0.5 MG/2 ML NEB SOLUTION NEB SCH (08:42)
[2018-10-28 08:55] LABS: GLUCOMETER DEV NAME(LOC) 5S.1; GLUCOSE,POINT OF CARE 185 MG/DL (70-110)
[2018-10-28 11:11] VITALS: BP 152/67
[2018-10-28 11:30] LABS: GLUCOMETER DEV NAME(LOC) 5S.2; GLUCOSE,POINT OF CARE 114 MG/DL (70-110)
[2018-10-28] MEDS ORDERED: ALBU2.5V2 NEB (13:32)
[2018-10-28] MEDS ORDERED: BENZ200C53 PO (13:33)
[2018-10-28] MEDS ORDERED: PANT40TA25 PO (13:33)
[2018-10-28] MEDS ORDERED: CEFU250T87 PO (13:34)
[2018-10-28] MEDS ORDERED: DOXY150T PO (13:35)
[2018-10-28 14:54] LABS: GLUCOMETER DEV NAME(LOC) 5N.1; GLUCOSE,POINT OF CARE 119 MG/DL (70-110)
[2018-10-28 15:43] VITALS: BP 151/81
[2018-10-28 18:25] LABS: GLUCOMETER DEV NAME(LOC) 5S.1; GLUCOSE,POINT OF CARE 73 MG/DL (70-110)
== END 2018-10-28 17:05 | disposition home or self-care (01) | DRG 871 ==
LOC: EMS 17:00 → 5S 22:14 → 5N 10-21 20:50 → 5S 10-24 21:30
PROVIDERS: ADMIT Internal Medicine; ATTEND Internal Medicine
DX: A41.9 Sepsis, unspecified organism (principal); J18.1 Lobar pneumonia, unspecified organism; J44.0 Chronic obstructive pulmonary disease with (acute) lower respiratory infection; I13.0 Hypertensive heart and chronic kidney disease with heart failure and stage 1 through stage 4 chronic kidney disease, or unspecified chronic kidney disease; E22.2 Syndrome of inappropriate secretion of antidiuretic hormone; D64.9 Anemia, unspecified; M19.90 Unspecified osteoarthritis, unspecified site; I50.9 Heart failure, unspecified; K21.9 Gastro-esophageal reflux disease without esophagitis; Z90.49 Acquired absence of other specified parts of digestive tract; Z96.651 Presence of right artificial knee joint; Z96.642 Presence of left artificial hip joint; Z84.1 Family history of disorders of kidney and ureter; I25.119 Atherosclerotic heart disease of native coronary artery with unspecified angina pectoris; G47.33 Obstructive sleep apnea (adult) (pediatric); I35.0 Nonrheumatic aortic (valve) stenosis; R00.0 Tachycardia, unspecified; E11.22 Type 2 diabetes mellitus with diabetic chronic kidney disease; N18.9 Chronic kidney disease, unspecified; Z79.4 Long term (current) use of insulin; E07.81 Sick-euthyroid syndrome; Z79.82 Long term (current) use of aspirin; Z79.899 Other long term (current) drug therapy; T50.2X5A Adverse effect of carbonic-anhydrase inhibitors, benzothiadiazides and other diuretics, initial encounter; Y92.89 Other specified places as the place of occurrence of the external cause
CPT/HCPCS: 71250; 82533; 83540; 83550; 83605; 83695; 83735; 83935; 84100; 84132; 84145; 84300; 84439; 84443; 84481; 85651; 86140; 87015; 87040; 87070; 87205; 87206; 87449; 87804; 87899; 93005; 93306; 94060; 94640; 97110; 97116; 97161; 97530; C9113; G0378; J0456; J0696; J1644; J1940; J1956; J7030; J7050

== ENCOUNTER → 2018-11-27 | Outpatient (CLI) | payer MEDICARE, OTHER ==
[~2018-11-27] MED LIST changes: +ALBU2.5V2 NEB; +BENZ200C53 PO; +CEFU250T87 PO; -CELE100 PO; -CHL25 PO; -COMP5 PO; -CYAN250014 PO; +CYAN500 PO; +DOXY150T PO; +IOVERSOL 320 MG/ML 100 ML VIAL ONE; -OXYC-158 PO; +PANT40TA25 PO; +SODIUM CHLORIDE 0.9% 100 ML ONE
== END | disposition home or self-care (01) ==
LOC: RADMN 08:19
PROVIDERS: ATTEND Internal Medicine
DX: J18.9 Pneumonia, unspecified organism (principal); I51.7 Cardiomegaly; I25.10 Atherosclerotic heart disease of native coronary artery without angina pectoris; Z90.49 Acquired absence of other specified parts of digestive tract
CPT/HCPCS: 71260; J7050; Q9967

== ENCOUNTER → 2019-01-14 | Outpatient (CLI) | payer MEDICARE, OTHER ==
[~2019-01-14] MED LIST changes: -CYAN500 PO; +CYAN500T4 PO; -IOVERSOL 320 MG/ML 100 ML VIAL ONE; -SODIUM CHLORIDE 0.9% 100 ML ONE
[2019-01-14 13:23] LABS: HEMOGLOBIN A1C 6.8 % (4.5-6.2)
[2019-01-14 13:25] LABS: ALBUMIN 3.6 g/dL (3.4-5.0); BILIRUBIN,TOTAL 0.3 mg/dL (0.1-1.0); CHOL/HDL RATIO 2.4 (3.9-5.7); CREATININE 2.08 mg/dL (0.60-1.30); POTASSIUM 4.5 mmol/L (3.5-5.1); TOTAL PROTEIN, SERUM 8.1 g/dL (6.4-8.2)
== END | disposition home or self-care (01) ==
LOC: LABPV 12:40
PROVIDERS: ATTEND Internal Medicine
DX: I13.0 Hypertensive heart and chronic kidney disease with heart failure and stage 1 through stage 4 chronic kidney disease, or unspecified chronic kidney disease (principal); E11.22 Type 2 diabetes mellitus with diabetic chronic kidney disease; N18.3 Chronic kidney disease, stage 3 (moderate); I50.9 Heart failure, unspecified; K21.9 Gastro-esophageal reflux disease without esophagitis; I25.10 Atherosclerotic heart disease of native coronary artery without angina pectoris
CPT/HCPCS: 83036

== ENCOUNTER → 2019-01-21 | Outpatient (CLI) | payer MEDICARE, OTHER ==
[~2019-01-21] MED LIST changes: -AMLO-512 PO; +AMLO10TA7 PO
== END | disposition home or self-care (01) ==
LOC: RADMN 09:24
PROVIDERS: ATTEND Internal Medicine
DX: J18.9 Pneumonia, unspecified organism (principal); I70.0 Atherosclerosis of aorta; R91.8 Other nonspecific abnormal finding of lung field; Z90.49 Acquired absence of other specified parts of digestive tract
CPT/HCPCS: 71250

== ENCOUNTER → 2019-04-14 | Outpatient (CLI) | payer MEDICARE, OTHER ==
[2019-01-27 12:56] LABS: HEMOGLOBIN A1C 7.1 % (4.5-6.2)
[2019-01-27 13:05] LABS: BASOPHILS % (AUTO) 0.9 % (0.0-2.0); EOSINOPHILS % (AUTO) 4.6 % (1.0-6.0); HEMATOCRIT 36.3 % (36-46); LYMPHOCYTES # (AUTO) 1.4 K/uL (1.0-4.8); LYMPHOCYTES % (AUTO) 22.3 % (22.0-44.0); MEAN CORPUSCULAR HEMOGLOBIN 31.7 pg (26.0-34.0); MEAN CORPUSCULAR HGB CONC 33.1 G/dL (31.0-37.0); MEAN CORPUSCULAR VOLUME 96 fL (80-100); MONOCYTES # (AUTO) 0.8 K/uL (0.1-1.0); MONOCYTES % (AUTO) 12.6 % (2.0-9.0); NEUTROPHILS # (AUTO) 3.9 K/uL (1.8-7.7); NEUTROPHILS % (AUTO) 59.6 % (40.0-70.0); PLATELET COUNT (AUTO) 87 K/uL (150-450); RED BLOOD CELL COUNT(AUTO) 3.79 MIL/uL (4.00-5.20); RED CELL DISTRIBUTION WIDTH 13.4 % (11.5-14.5)
[2019-01-27 13:11] LABS: VITAMIN B12 LEVEL 1940 pg/mL (211-911)
[2019-01-27 13:17] LABS: % IRON SATURATION 29.8 % (22-44)
[2019-01-27 13:24] LABS: ALBUMIN 3.4 g/dL (3.4-5.0); BILIRUBIN,TOTAL 0.3 mg/dL (0.1-1.0); CALCIUM, TOTAL 9.1 mg/dL (8.8-10.5); CHOL/HDL RATIO 2.2 (3.9-5.7); CREATININE 1.82 mg/dL (0.60-1.30); POTASSIUM 3.5 mmol/L (3.5-5.1); THYROID STIMULATING HORMONE 1.87 uIU/mL (0.36-3.74); TOTAL PROTEIN, SERUM 7.9 g/dL (6.4-8.2)
[2019-01-27 13:24] LABS: FOLATE SERUM > 24.0 ng/mL (5.4-)
[~2019-04-14] MED LIST changes: -CYAN500T4 PO; +CYAN500T65 PO; -DOXY150T PO; +DOXY150T5 PO
[2019-04-14 12:50] LABS: HEMOGLOBIN A1C 6.4 % (4.5-6.2)
[2019-04-14 12:54] LABS: ALBUMIN 3.7 g/dL (3.4-5.0); BILIRUBIN,TOTAL 0.4 mg/dL (0.1-1.0); CALCIUM, TOTAL 9.5 mg/dL (8.8-10.5); CREATININE 1.6 mg/dL (0.60-1.30); POTASSIUM 4.5 mmol/L (3.5-5.1); TOTAL PROTEIN, SERUM 7.9 g/dL (6.4-8.2)
== END | disposition home or self-care (01) ==
LOC: LABPV 01-27 10:44
PROVIDERS: ATTEND Internal Medicine
DX: E78.2 Mixed hyperlipidemia (principal); I13.0 Hypertensive heart and chronic kidney disease with heart failure and stage 1 through stage 4 chronic kidney disease, or unspecified chronic kidney disease; E11.22 Type 2 diabetes mellitus with diabetic chronic kidney disease; N18.3 Chronic kidney disease, stage 3 (moderate); I50.9 Heart failure, unspecified; Z79.4 Long term (current) use of insulin
CPT/HCPCS: 82043; 82570; 82607; 82746; 83036; 83540; 83550; 84443

== ENCOUNTER 2020-08-12 13:10 | Inpatient (IN) | payer MEDICARE, OTHER ==
[~2020-08-12] VITALS: Ht 154.9 cm; Wt 65.0 kg
[~2020-08-12 13:10] MED LIST changes: +AMLO-258 PO; -AMLO10TA7 PO; -CYAN500T65 PO; +CYAN500T9 PO; +FOLI-130 PO; -FOLI1 PO; +GABA-1216 PO; -GABA-529 PO; +MONT-35 PO; -MONT10TA21 PO; -PANT40TA25 PO; +PANT40TA54 PO; -THIA100T67 PO; +THIAMINE HCL100 MG PO
[2020-08-12 15:24] LABS: BASOPHILS % (AUTO) 0.5 % (0.0-2.0); EOSINOPHILS % (AUTO) 0.1 % (1.0-6.0); HEMATOCRIT 33.2 % (36-46); HEMOGLOBIN 10.9 g/dL (12.0-16.0); LYMPHOCYTES # (AUTO) 1.8 K/uL (1.0-4.8); LYMPHOCYTES % (AUTO) 30.7 % (22.0-44.0); MEAN CORPUSCULAR HEMOGLOBIN 31.2 pg (26.0-34.0); MEAN CORPUSCULAR VOLUME 95 fL (80-100); MONOCYTES # (AUTO) 0.8 K/uL (0.1-1.0); MONOCYTES % (AUTO) 14.5 % (2.0-9.0); NEUTROPHILS # (AUTO) 3.1 K/uL (1.8-7.7); NEUTROPHILS % (AUTO) 54.2 % (40.0-70.0); RED BLOOD CELL COUNT(AUTO) 3.51 MIL/uL (4.00-5.20); RED CELL DISTRIBUTION WIDTH 13.7 % (11.5-14.5)
[2020-08-12 15:46] LABS: ALBUMIN 3.3 g/dL (3.4-5.0); BILIRUBIN,TOTAL 0.3 mg/dL (0.1-1.0); CALCIUM, TOTAL 8.5 mg/dL (8.8-10.5); CREATININE 1.77 mg/dL (0.60-1.30); TOTAL PROTEIN, SERUM 7.9 g/dL (6.4-8.2)
[2020-08-12 16:22] LABS: COVID AG,FIA SOURCE NASOPHARYNGEAL
[2020-08-12] MEDS ORDERED: SODIUM CHLORIDE 0.9% 1,000 ML IV ONE (16:30)
[2020-08-12 16:35] LABS: PLATELET COUNT (AUTO) 59 K/uL (150-450)
[2020-08-12 16:41] LABS: C-REACTIVE PROTEIN QUANT 2.28 mg/dL (0.00-0.30)
[2020-08-12] MEDS ORDERED: HYDR10TA31 PO (16:56)
[2020-08-12] MEDS ORDERED: ASPI-728 PO (16:56)
[2020-08-12] MEDS ORDERED: ROSU20TA23 PO (16:56)
[2020-08-12] MEDS ORDERED: CARV25 PO (16:56)
[2020-08-12] MEDS ORDERED: SITA100 PO (16:56)
[2020-08-12] MEDS ORDERED: [UNRECOGNIZED DRUG - CODE] (16:56)
[2020-08-12] MEDS ORDERED: FAMO20 PO (16:56)
[2020-08-12] MEDS ORDERED: AMLO-258 PO (16:56)
[2020-08-12] MEDS ORDERED: 0.9% SODIUM CHLORIDE 10 ML SYRINGE IVP PRN (17:15)
[2020-08-12] MEDS ORDERED: ACETAMINOPHEN 325 MG TABLET PO PRN ×2 (17:15→21:30)
[2020-08-12] MEDS ORDERED: ONDANSETRON HCL 4 MG/2 ML VIAL IVP PRN (17:15)
[2020-08-12] MEDS ORDERED: MORPHINE SULFATE 2 MG/ML SYRINGE IVP PRN (21:30)
[2020-08-12] MEDS ORDERED: OxyCODONE HCL/ACETAMINOPHEN 5-325 MG TABLET PO PRN (21:30)
[2020-08-12] MEDS ORDERED: DEXTROSE 50%-WATER 25 GM/50 ML SYRINGE IVP PRN (21:30)
[2020-08-12 21:32] VITALS: BP 139/71
[2020-08-13] VITALS (7 sets, daily range): BP systolic 114–143; BP diastolic 51–86
[2020-08-13] MEDS: PANTOPRAZOLE SODIUM 40 MG DR TABLET PO SCH (05:37)
[2020-08-13 06:19] LABS: BASOPHILS % (AUTO) 0.8 % (0.0-2.0); EOSINOPHILS % (AUTO) 0.4 % (1.0-6.0); HEMATOCRIT 34.4 % (36-46); HEMOGLOBIN 11.4 g/dL (12.0-16.0); LYMPHOCYTES % (AUTO) 26.7 % (22.0-44.0); MEAN CORPUSCULAR HEMOGLOBIN 31.2 pg (26.0-34.0); MEAN CORPUSCULAR VOLUME 94 fL (80-100); MONOCYTES # (AUTO) 0.7 K/uL (0.1-1.0); MONOCYTES % (AUTO) 17.8 % (2.0-9.0); NEUTROPHILS # (AUTO) 2.1 K/uL (1.8-7.7); NEUTROPHILS % (AUTO) 54.3 % (40.0-70.0); PLATELET COUNT (AUTO) 56 K/uL (150-450); RED BLOOD CELL COUNT(AUTO) 3.64 MIL/uL (4.00-5.20); RED CELL DISTRIBUTION WIDTH 13.5 % (11.5-14.5)
[2020-08-13 07:59] LABS: BILIRUBIN,TOTAL 0.4 mg/dL (0.1-1.0); C-REACTIVE PROTEIN QUANT 2.69 mg/dL (0.00-0.30); CALCIUM, TOTAL 8.2 mg/dL (8.8-10.5); CREATININE 1.29 mg/dL (0.60-1.30); POTASSIUM 3.7 mmol/L (3.5-5.1); TOTAL PROTEIN, SERUM 7.6 g/dL (6.4-8.2)
[2020-08-13 08:13] LABS: GLUCOMETER DEV NAME(LOC) 5N.1B; GLUCOSE,POINT OF CARE 126 MG/DL (70-110)
[2020-08-13] MEDS: CARVEDILOL 25 MG TABLET PO SCH (08:48)
[2020-08-13] MEDS: FAMOTIDINE 20 MG TABLET PO SCH (08:48)
[2020-08-13] MEDS: ASCORBIC ACID 500 MG TABLET PO SCH (08:49)
[2020-08-13] MEDS: FOLIC ACID 1 MG TABLET PO SCH (08:49)
[2020-08-13] MEDS: AmLODIPine BESYLATE 10 MG TABLET PO SCH (08:49)
[2020-08-13] MEDS: SODIUM CHLORIDE 1 GM TABLET PO SCH ×3 (08:49→20:14)
[2020-08-13] MEDS: CYANOCOBALAMIN 500 MCG TABLET PO SCH (08:49)
[2020-08-13] MEDS: ASPIRIN 81 MG CHEWABLE TABLET PO SCH (08:49)
[2020-08-13] MEDS: ZINC SULFATE 220 MG CAPSULE PO SCH (08:49)
[2020-08-13] MEDS: DOCUSATE SODIUM 100 MG CAPSULE PO SCH ×2 (08:49→20:14)
[2020-08-13] MEDS: HydrALAZINE HCL 10 MG TABLET PO SCH ×3 (08:50→20:14)
[2020-08-13] MEDS: INSULIN LISPRO 100 UNITS/ML SQ PRN ×2 (11:58→20:28)
[2020-08-13 12:12] LABS: GLUCOMETER DEV NAME(LOC) 5N.1B; GLUCOSE,POINT OF CARE 194 MG/DL (70-110)
[2020-08-13] MEDS ORDERED: ROSUVASTATIN CALCIUM 20 MG TABLET PO SCH (21:00)
[2020-08-13 21:46] LABS: GLUCOMETER DEV NAME(LOC) 5N.1B; GLUCOSE,POINT OF CARE 136 MG/DL (70-110)
[2020-08-13 23:23] LABS: GLUCOMETER DEV NAME(LOC) 5N.3; GLUCOSE,POINT OF CARE 189 MG/DL (70-110)
[2020-08-14 04:20] VITALS: BP 112/62
[2020-08-14] MEDS: PANTOPRAZOLE SODIUM 40 MG DR TABLET PO SCH (06:39)
[2020-08-14 07:11] LABS: CALCIUM, TOTAL 8.3 mg/dL (8.8-10.5); CREATININE 1.53 mg/dL (0.60-1.30); POTASSIUM 3.6 mmol/L (3.5-5.1)
[2020-08-14 07:50] VITALS: BP 116/65
[2020-08-14] MEDS: ZINC SULFATE 220 MG CAPSULE PO SCH (08:19)
[2020-08-14] MEDS: HydrALAZINE HCL 10 MG TABLET PO SCH ×2 (08:19→16:00)
[2020-08-14] MEDS: ASPIRIN 81 MG CHEWABLE TABLET PO SCH (08:20)
[2020-08-14] MEDS: DOCUSATE SODIUM 100 MG CAPSULE PO SCH (08:20)
[2020-08-14] MEDS: CARVEDILOL 25 MG TABLET PO SCH (08:20)
[2020-08-14] MEDS: SODIUM CHLORIDE 1 GM TABLET PO SCH ×2 (08:20→17:15)
[2020-08-14] MEDS: ASCORBIC ACID 500 MG TABLET PO SCH (08:20)
[2020-08-14] MEDS: FAMOTIDINE 20 MG TABLET PO SCH (08:20)
[2020-08-14] MEDS: FOLIC ACID 1 MG TABLET PO SCH (08:20)
[2020-08-14] MEDS: CYANOCOBALAMIN 500 MCG TABLET PO SCH (08:21)
[2020-08-14] MEDS: AmLODIPine BESYLATE 10 MG TABLET PO SCH (09:00)
[2020-08-14 12:00] VITALS: BP 92/53
[2020-08-14] MEDS: INSULIN LISPRO 100 UNITS/ML SQ PRN ×2 (12:18→17:16)
[2020-08-14 12:30] VITALS: BP 113/58
[2020-08-14 15:12] LABS: GLUCOMETER DEV NAME(LOC) 5N.1B; GLUCOSE,POINT OF CARE 133 MG/DL (70-110)
[2020-08-14 15:13] LABS: GLUCOMETER DEV NAME(LOC) 5N.1B; GLUCOSE,POINT OF CARE 233 MG/DL (70-110)
[2020-08-14] MEDS ORDERED: SULF15DR26 OU (15:34)
[2020-08-14 17:10] LABS: GLUCOMETER DEV NAME(LOC) 5N.3; GLUCOSE,POINT OF CARE 149 MG/DL (70-110)
[2020-08-14] MEDS: SULFACETAMIDE SODIUM 10% 15 ML OPHTHALMIC SOLUTION OU SCH ×2 (17:15→17:17)
== END 2020-08-14 18:45 | disposition home or self-care (01) | DRG 178 ==
LOC: EMS 13:25 → 5N 17:05
PROVIDERS: ADMIT Internal Medicine; ATTEND Internal Medicine
DX: U07.1 COVID-19 (principal); E87.1 Hypo-osmolality and hyponatremia; I50.32 Chronic diastolic (congestive) heart failure; N17.9 Acute kidney failure, unspecified; I13.0 Hypertensive heart and chronic kidney disease with heart failure and stage 1 through stage 4 chronic kidney disease, or unspecified chronic kidney disease; I25.10 Atherosclerotic heart disease of native coronary artery without angina pectoris; E78.5 Hyperlipidemia, unspecified; J44.9 Chronic obstructive pulmonary disease, unspecified; K21.9 Gastro-esophageal reflux disease without esophagitis; M19.90 Unspecified osteoarthritis, unspecified site; N18.9 Chronic kidney disease, unspecified; E11.65 Type 2 diabetes mellitus with hyperglycemia; E11.22 Type 2 diabetes mellitus with diabetic chronic kidney disease; D69.6 Thrombocytopenia, unspecified; Z96.649 Presence of unspecified artificial hip joint; Z96.651 Presence of right artificial knee joint; G47.30 Sleep apnea, unspecified; Z90.49 Acquired absence of other specified parts of digestive tract
CPT/HCPCS: 82728; 83615; 84145; 85379; 86140; 87426; 93005; 97161; 36415-L1; 36415-TC; 71045-TC